=== PATIENT | male | born 1965 | race Caucasian/White ===

== ENCOUNTER 2017-08-22 21:59 | Emergency (ER) | payer OTHER ==
[~2017-08-22] VITALS: Ht 175.3 cm; Wt 80.7 kg
[~2017-08-22 21:59] MED LIST: ANTIVERT25 MG PO; ASPIR 8181 MG; DOXYCYCLINE 10100 MG PO; JANUVIA100 MG PO; LISINOPRIL-HCT1 EAC2 PO; LOVASTATIN 20 M20 MG PO; METFORMIN HCL500 MG PO; ONDANSETRON HCL4 M2 PO; POLYMYXIN B/TMP10 ML OP; ZPAK PO; ZYRTEC10 MG PO
[2017-08-22] MEDS ORDERED: ? B/P MED (22:07)
[2017-08-22] MEDS ORDERED: ? CHOLESTEROL MED (22:08)
[2017-08-22] MEDS ORDERED: FLEXERIL PO (22:58)
[2017-08-22] MEDS ORDERED: NORCO 7.5-3251 EACH PO (22:58)
[2017-08-22] MEDS ORDERED: MEDROLDOSEPACK PO (22:58)
[2017-08-22 23:09] VITALS: BP 161/94
--- NOTE | 2017-08-23 10:49 | EKG ---
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 : 1965 Requested By: Meryl Avalos Order Number: [id number] MD: Juancho Allen Measurements Intervals [place] Rate: 62 P: 20 [place]: 140 QRS: 11 QRSD: 110 T: 68 QT: 405 QTc: 412 Interpretive Statements Sinus rhythm Ventricular premature complex Borderline low voltage, extremity leads Nonspecific T abnormalities, anterior leads Compared to ECG 06/01/2016 15:13:36 Ventricular premature complex(es) now present Electronically Signed On 08-23-2017 10:49:50 CDT by Juancho Allen [email or web address] <ELECTRONICALLY SIGNED> By: Juancho Allen MD, [facility] 08/23/17 1049 30 30 Juancho Allen MD, [facility] /EPI
== END 2017-08-22 23:09 | disposition home or self-care (01) ==
LOC: M.ERS 21:59
DX: M25.511 Pain in right shoulder (principal); Z87.891 Personal history of nicotine dependence; Z88.0 Allergy status to penicillin; Z95.5 Presence of coronary angioplasty implant and graft; Z95.1 Presence of aortocoronary bypass graft

== ENCOUNTER 2017-09-16 21:22 | Emergency (ER) | payer OTHER ==
[~2017-09-16] VITALS: Ht 175.3 cm; Wt 90.7 kg
[~2017-09-16 21:22] MED LIST changes: +? B/P MED; +? CHOLESTEROL MED; +FLEXERIL PO; +MEDROLDOSEPACK PO; +NORCO 7.5-3251 EACH PO
[2017-09-16] MEDS ORDERED: CHOLESTROL MED (21:29)
[2017-09-16] MEDS ORDERED: BP MED (21:29)
[2017-09-16 21:48] LABS: URINE BILIRUBIN NEGATIVE (Negative); URINE BLOOD NEGATIVE (Negative); URINE CLARITY CLEAR; URINE COLOR YELLOW; URINE GLUCOSE-RANDOM NEGATIVE (Negative); URINE KETONES NEGATIVE (Negative); URINE LEUKOCYTES-REFLEX NEGATIVE (Negative); URINE NITRITE-REFLEX NEGATIVE (Negative); URINE PROTEIN NEGATIVE (Negative); URINE SPECIFIC GRAVITY 1.025 (1.005-1.030); URINE UROBILINOGEN 0.2 E.U./dl (0.2-1.0)
[2017-09-16] MEDS ORDERED: ROBAXIN500 MG PO (22:04)
[2017-09-16] MEDS ORDERED: TRAMADOL 50 MG50 MG PO (22:04)
[2017-09-16 22:35] VITALS: BP 127/75
== END 2017-09-16 22:36 | disposition home or self-care (01) ==
LOC: M.ERS 21:22
PROVIDERS: Nurse Practitioner Family
DX: M54.5 Low back pain (principal); Z87.891 Personal history of nicotine dependence; Z88.0 Allergy status to penicillin; Z95.1 Presence of aortocoronary bypass graft; Z95.5 Presence of coronary angioplasty implant and graft

== ENCOUNTER 2018-11-19 17:48 | Emergency (ER) | payer OTHER ==
[~2018-11-19] VITALS: Ht 175.3 cm; Wt 90.7 kg
[~2018-11-19 17:48] MED LIST changes: +BACTRIM DS TAB1 EACH PO; +BP MED; +CHOLESTROL MED; +NORCO 5-325 TA1 EAC1 PO; +ROBAXIN500 MG PO; +TRAMADOL 50 MG50 MG PO
[2018-11-19] MEDS ORDERED: LIPITOR 40 MG T40 M1 PO (18:11)
[2018-11-19] MEDS ORDERED: LOPRESSOR25 PO (18:11)
[2018-11-19] MEDS ORDERED: LO-DOSE ASPIRIN81 M1 PO (18:12)
[2018-11-19] MEDS ORDERED: NAPROSYN500 MG PO (19:31)
[2018-11-19 20:22] VITALS: BP 141/75
== END 2018-11-19 20:23 | disposition home or self-care (01) ==
LOC: M.ERS 17:48
DX: S61.432A Puncture wound without foreign body of left hand, initial encounter (principal); I10 Essential (primary) hypertension; Z95.1 Presence of aortocoronary bypass graft; Z88.0 Allergy status to penicillin; W18.39XA Other fall on same level, initial encounter; Y93.89 Activity, other specified; Y92.89 Other specified places as the place of occurrence of the external cause; Y99.8 Other external cause status